=== PATIENT | male | born 1985 | race Caucasian/White ===

== ENCOUNTER 2020-05-21 01:06 | Emergency (ER) | payer OTHER ==
[~2020-05-21] VITALS: Ht 188 cm; Wt 115.2 kg
[2020-05-21 01:12] VITALS: Ht 188 cm; Wt 115.2 kg
[2020-05-21 01:54] VITALS: BP 129/82
== END 2020-05-21 01:54 | disposition home or self-care (01) ==
LOC: ED 01:06
DX: R00.2 Palpitations (principal); T43.615A Adverse effect of caffeine, initial encounter; X58.XXXA Exposure to other specified factors, initial encounter; Y93.89 Activity, other specified; Y92.89 Other specified places as the place of occurrence of the external cause; Y99.8 Other external cause status